=== PATIENT | female | born 1975 | race Caucasian/White ===

== ENCOUNTER → 2016-09-18 08:58 | Outpatient (CLI) | payer OTHER | END | disposition home or self-care (01) | LOC: D.NM 09-15 09:00 | DX: R10.11 Right upper quadrant pain (principal) ==

== ENCOUNTER 2017-03-20 07:03 | Day surgery (SDC) | payer OTHER ==
[2017-03-20 07:55] LABS: BASOPHILS 0.2 % (0-2); EOSINOPHILS 2.4 % (0-7); HEMATOCRIT 39.9 % (36.0-48.0); LYMPHOCYTES 34.5 % (15-50); MCH 30.1 pg (26.0-34.0); MCHC 35.1 g/dL (31.0-37.0); MCV 85.8 fL (80.0-100.0); MEAN PLATELET VOLUME 9.6 fL (7.4-10.4); MONOCYTES 8.3 % (2-11); NEUTROPHILS 54.6 % (40-80); PLATELET COUNT 197 10x3/uL (130-400); RBC 4.65 10x6/uL (4.00-5.40); RDW 12.6 % (11.5-14.5); WBC 5.3 10x3/uL (4.8-10.8)
[2017-03-20 08:05] LABS: HCG SERUM NEGATIVE (NEGATIVE)
[2017-03-20 08:20] VITALS: BP 132/84; BMI 24.9
[2017-03-20] MEDS ORDERED: ULTRAM50 MG PO (10:44)
--- NOTE | 2017-03-20 11:38 | NUR ---
TO ROOM FROM RR AWAKE AND ALERT, 4 PUNTURE SITE WITH OOSING NOTED TO STERI STRIPS WITH RIGHT PUNTURE SITE WITH SM HEMATOMA NOTED, ICE PLACED TO SITE WITH PRESSURE DRESSING, DR VILLAFANA CALLED ODRERED ICE AND PRESSURE DRESSING TO SITE , DONE
--- NOTE | 2017-03-20 14:06 | NUR ---
1315 IV DC WITH TIP INTACT
--- NOTE | 2017-03-27 11:14 | OP ---
PATIENT NAME: KIM WHITING MEDICAL RECORD: [id number] :79 LOCATION:[facility] ADMISSION DATE: SURGEON: ARTUR VILLAFANA MD DATE OF OPERATION: 03/20/2017 PREOPERATIVE DIAGNOSES: 1. Biliary dyskinesia. 2. Migraines. POSTOPERATIVE DIAGNOSES: 1. Biliary dyskinesia. 2. Migraines. PROCEDURE: Laparoscopic cholecystectomy. SURGEON: Artur Villafana MD REPORT OF PROCEDURE: The patient's abdomen was prepped and draped in sterile fashion. A cutdown was made on the superior aspect of the umbilicus, 0 Vicryls were placed in the fascia bilaterally and the fascia was incised with 15-blade. I then bluntly entered the peritoneal cavity and placed a 12-mm Ivelisse port. Under direct visualization, a 5 mm trocar was placed in the epigastrium and two more 5-mm trocars were placed in the right subcostal region. The gallbladder was grasped and elevated. There were some inflammatory adhesions present to this and these were teased down carefully with blunt dissection. The cystic artery and duct were dissected free and these were clipped proximally and distally and ligated in standard fashion. The cystic duct was noted to be very serpentine and overlapping on itself. The gallbladder was then taken off the liver bed using electrocautery and placed into the right upper quadrant. Any bleeding from the liver bed was treated with electrocautery. At this point, the ports and insufflation were then removed and the gallbladder was taken out through the umbilicus. The umbilical fascia was closed with interrupted 0 Vicryls times 3. The wounds were irrigated out with normal saline and infused with 10 mL of 0.25% Marcaine with epinephrine. The skin incisions were all closed with subcutaneous 5-0 Monocryl and dressed appropriately. COMPLICATIONS: None. CONDITION: Stable. ANESTHESIA: General endotracheal and local. BLOOD LOSS: Minimal. 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
== END 2017-03-20 13:30 | disposition home or self-care (01) ==
LOC: D.OPS 07:03
PROVIDERS: Anesthesiology
DX: K82.8 Other specified diseases of gallbladder (principal); G43.909 Migraine, unspecified, not intractable, without status migrainosus; Z01.812 Encounter for preprocedural laboratory examination